=== PATIENT | male | born 1965 | race Caucasian/White ===

== ENCOUNTER 2017-05-17 07:59 | Inpatient (IN) | payer MEDICAID ==
--- NOTE | 2017-05-17 08:41 | ED Physician Chart ---
Chief Complaint/HPI - Patient Information Date Seen:: 05/17/17 Time Seen:: 08:25 Chief Complaint:: lower abdominal pain History of Present Illness:: Patient's had lower abdominal pain for 3 days. He had diarrhea 122 days ago but not since. He had a normal bowel movement this morning. He denies vomiting. Patient cut his left index finger about one week ago. Allergies:: Allergies Allergy/AdvReac Type Severity Reaction Status Date / Time No Known Allergies Allergy Verified 05/17/17 08:13 Vitals:: Vital Signs - 8 hr 05/17/17 08:05 Temp 98.1 F HR 97 RR 16 BP 163/97 O2 Sat % 97 Historian:: Patient Review:: Nurse's Note Reviewed Review of Systems - Review of Systems General/Constitutional: No fever, No chills Skin: No skin lesions Head: No headache Eyes: No loss of vision ENT: No earache Neck: No neck pain Cardio Vascular: No chest pain, No palpitations Pulmonary: No SOB GI: No nausea, No vomiting, Diarrhea, Pain G/U: No dysuria Musculoskeletal: No bone or joint pain, Other (severe episodes of muscle cramping) Psychiatric: No prior psych history, No depression Hematopoietic: No bruising Allergic/Immuno: No urticaria Past Medical History - Past Medical History Past Medical History: HTN Family History: None Social History: Non Smoker, Alcohol, Other (patient drinks 12-24 beers per day) Surgical History: other (right femur as a child after trauma) Psychiatricy History: None Medication: Reviewed Family Medical History - Family Member Mother Hx Family Cancer: Yes Physical Exam - Physical Examination General/Constitutional: Alert, No distress Head: Atraumatic Eyes: Lids, conjuctiva normal, PERRL Skin: Nl inspection, No rash, No skin lesions, No ecchymosis ENMT: External ears, nose nl, TM canals nl, Nasal exam nl, Lips, teeth, gums nl Neck: No nuchal rigidity Respiratory: Nl effort/Exclusion, Clear to Auscultation Cardio Vascular: No murmur, gallop, rubs, NL S1 S2 GI: No organomegaly, No hernia, Normal BS's, No mass/bruits Other GI comments:: Right upper quadrant and lower abdominal tenderness which is maximum in the left lower quadrant : No CVA tenderness Extremities: No tenderness or effusion Other Extremities comments:: Left index finger: There is a 1 cm linear laceration of the dorsal proximal segment with about 2 mm of erythema on both sides of the laceration Neuro/Psych: Alert/oriented Misc: Normal back Labs/Radiology/EKG Results - Lab Results Results: Laboratory Results - last 24 hr 05/17/17 05/17/17 05/17/17 08:48 08:48 09:28 WBC 15.4 H RBC 4.99 Hgb 14.8 Hct 43.7 MCV 87.6 MCH 29.6 MCHC Differential 33.8 RDW 13.6 Plt Count 232 MPV 7.5 Band Neutrophils % 4 Neutrophils (Manual) 77 Lymphocytes 11 L Monocytes 8 Sodium 139 Potassium 4.2 Chloride 107 Carbon Dioxide 28.6 Anion Gap 7.6 BUN 16 Creatinine 0.9 Est GFR ( Amer) > 60.0 Est GFR (Non-Af Amer) > 60.0 BUN/Creatinine Ratio 17.8 Glucose 123 H Whole Bld Lactic Acid 0.73 Calcium 9.0 Magnesium 2.2 Lipase 31 - Radiology Results Results: CT of abdomen and pelvis showed diverticulitis with perforated diverticulum Assessment - Assessment General Assessment: Dr. Galeas wanted a consult to Dr. Potter. I spoke to Dr. Moss also. ED Septic Shock - . Is Septic Shock (SBP<90, OR Lactate>4 mmol\L) present?: No - <6hrs of presentation: Vital Signs: Vital Signs - 8 hr 05/17/17 08:05 Temp 98.1 F HR 97 RR 16 BP 163/97 O2 Sat % 97 Reassessment (Disposition) - Reassessment Reassessment Condition:: Unchanged - Diagnosis Diagnosis:: Diverticulitis; perforated diverticulum; leukocytosis - Patient Disposition Admitted to:: Med/Surg Spoke to:: Sae Galeas Admitting Medical Physician:: Sae Galeas Condition at Disposition:: Stable, Unchanged
[2017-05-17 08:59] LABS: HEMATOCRIT 43.7 % (39.0-49.0); HEMOGLOBIN 14.8 gm/dL (13.2-17.3); MEAN CELL VOLUME 87.6 fl (80-99); MEAN CORPUSCULAR HEMOGLOBIN 29.6 pg (26.0-30.0); MEAN CORPUSCULAR HGB CONC 33.8 pg (28.0-36.0); MEAN PLATELET VOLUME 7.5 fl; PLATELET COUNT 232 Th/cmm (150-400); RED BLOOD COUNT 4.99 Mil/cmm (4.30-5.70); RED CELL DISTRIBUTION WIDTH 13.6 % (11.5-20.0)
[2017-05-17 09:04] LABS: WHITE BLOOD COUNT 15.4 Th/cmm (4.8-10.8)
[2017-05-17 09:13] LABS: ANION GAP 7.6 (7.0-16.0); BUN - UREA NITROGEN 16 mg/dL (7-25); BUN/CREATININE RATIO 17.8; CARBON DIOXIDE 28.6 mEq/L (21.0-31.0); CHLORIDE 107 mEq/L (98-107); CREATININE - SERUM 0.9 mg/dL (0.7-1.3); GLUCOSE 123 mg/dL (70-105); LIPASE 31 U/L (11-82); MAGNESIUM 2.2 mg/dL (1.9-2.7); POTASSIUM SERUM 4.2 mEq/L (3.5-5.1); SODIUM SERUM 139 mEq/L (136-145)
--- NOTE | 2017-05-17 09:40 | Diagnostic Imaging Report ---
CT abdomen and pelvis without intravenous contrast Indication: Diverticulitis Comparison: None, Technique: Axial images were obtained from the lung bases to the bilateral proximal femurs without IV contrast. Coronal reconstructions were made. total DLP: 980, CTDI17.9 FINDINGS: Hypoventilatory atelectatic lung changes are noted. Assessment of the solid organs is limited due to lack of IV contrast. There is fatty infiltration of the liver. No evidence of focal hepatic or splenic lesions. No focal adrenal images. Nonspecific mild bilateral perinephric inflammatory changes are noted. No hydronephrosis. Diverticulosis is seen with bowel wall thickening inflammatory change in diverticulitis of the sigmoid colon with multiple pockets of free air seen extending superiorly into the mesenteric region compatible with perforation. No evidence of an abscess. Trace free fluid is noted. Appendix is unremarkable. Small bilateral fat-containing hernias are noted. Degenerative changes of the spine are noted. IMPRESSION: Findings compatible with perforated diverticulitis in the region of the sigmoid colon with surrounding inflammatory change and pockets of free air seen extending superiorly. No evidence of abscess formation. Clinical correlation and follow-up is recommended. Fatty liver. Critical results were conveyed to the ER on 05/17/2017.
[2017-05-17 09:47] LABS: TOTAL CELLS COUNTED 100
[2017-05-17 09:48] LABS: BAND NEUTROPHILE 4 % (0-10); NEUTROPHILS 77 % (40-80)
[2017-05-17] MEDS ORDERED: Sodium Chloride 0.9% 1,000 ML IV ONE (09:59)
[2017-05-17 10:39] LABS: URINE BILIRUBIN NEGATIVE (NEGATIVE); URINE COLOR H; URINE GLUCOSE (UA) NEGATIVE (NEGATIVE)
[2017-05-17 10:40] LABS: URINE BLOOD SMALL (NEGATIVE); URINE KETONE NEGATIVE (NEGATIVE); URINE PROTEIN 30 mg/dL (NEGATIVE); URINE UROBILINOGEN 0.2 E.U./dL (0.2 - 1.0)
[2017-05-17 10:41] LABS: URINE BACTERIA NONE SEEN /hpf (NONE SEEN); URINE EPITHELIAL CELLS OCCASIONAL /lpf (FEW); URINE RBC 0-2 /hpf (0-5); URINE WBC 0-2 /hpf (0-5)
[2017-05-17] MEDS ORDERED: HYDROmorphone 2 mg/mL 1mL Vial ONE (10:46)
[2017-05-17] MEDS ORDERED: HYDROmorphone 2 mg/mL 1mL Vial IVP STA (11:06)
[2017-05-17] MEDS ORDERED: D5-0.45NS 1,000 ML IV SCH (11:31)
[2017-05-17] MEDS ORDERED: HYDROmorphone 1 mg/mL 1mL Syr IVP PRN (13:16)
[2017-05-17] MEDS: HYDROmorphone 2 mg/mL 1mL Vial IVP PRN ×2 (13:21→21:04)
--- NOTE | 2017-05-17 13:48 | Admit Criteria Form ---
Admit Criteria Forms - Admit Criteria Diagnosis: DIVERTICULITIS, ACUTE Clinical Indications for Admission to Inpatient Care (Place 'X' for any and all applicable criteria): Admission is indicated for ANY ONE of the following (1)(2)(3)(4): [ ]I. Peritoneal signs on physical examination (eg, acute abdominal pain, abdominal tenderness and guarding) [ ]II. Hemodynamic instability [ ]III. Persistent gross bleeding per rectum [ ]IV. Need for inpatient surgical intervention [X]V. Significant abnormality on imaging study including ANY ONE of the following: [ ]a) Abscess [ ]b) Obstruction [ ]c) Fistula [ ]d) Ileus [X]e) Free perforation [ ]. Immunocompromised patient (steroid use, chemotherapy, uremia, AIDS , transplant patient ) with acute symptoms [ ]VII Inpatient admission required rather than observation care (also use Diverticulitis, Acute: Observation Care as appropriate) because of ANY ONE of the following: [ ]a) High fever or infection. requiring inpatient admission as indicated by ANY ONE of the following(5): [ ]1) Appropriate outpatient or observation care antimicrobial treatment unavailable, not effective, not feasible [ ]2) Temperature > 103.1 degrees F (39.5 degrees C) (oral) or < 96.8 degrees F (36 degrees C)(rectal) that does not respond to all emergency treatment measures [ ]3) Temperature> 104.9 degrees F (40.5 degrees C)( oral) [ ]4) Documented bacteremia [ ]b) Severe pain requiring acute inpatient management [ ]c) Severe electrolyte abnormalities requiring inpatient care [ ]d) Ongoing transfusion for blood loss (> 2 units) [ ]e) IV fluid to replace significant ongoing losses (> 3 L/m2 per day) [ ]f) Parenteral nutrition regimen that must be implemented on inpatient basis [ ]g) Other condition, treatment or monitoring requiring inpatient admission Extended stay beyond goal length of stay may be needed for (2) (15) : [ ]a) Unresolved symptoms (19) [ ]b) Complications [ ]c) Diverticular hemorrhage(2) The original [facility] content created by [employer] has been revised. The portions of the content which have been revised are identified through the use of italic text or in bold, and [facility] has neither reviewed nor approved the modified material. All other unmodified content is copyright [facility]. Please see references footnoted in the original [facility] edition 2016
--- NOTE | 2017-05-17 17:39 | History and Physical ---
History of Present Illness - HPI Chief Complaint: Abdominal Pain HPI: 52 yo White Male with lower abdominal pain for 3 days. Vital Signs: Last Vital Signs Temp 98.1 F 05/17/17 11:51 Pulse 95 05/17/17 11:51 Resp 18 05/17/17 15:30 BP 154/98 05/17/17 11:51 Pulse Ox 96 05/17/17 11:51 Past Medical History Cardiovascular: Report: HTN Pulmonary: Report: No Pertinent Hx [employer]: Report: No Pertinent Hx GI: Report: No Pertinent Hx Psych: Report: Addictions Musculoskeletal: Report: No Pertinent Hx Rheumatologic: Report: No pertinent Hx Infectious Disease: Report: No Pertinent Hx Renal/: Report: No Pertinent Hx Endocrine: Report: No Pertinent Hx Dermatology: Report: No Pertinent Hx - Past Surgical History Past Surgical History: Other (Right Femur) Family Medical History - Family Member Mother History Unknown: Yes Hx Family Cancer: Yes Social History Smoke: No Alcohol: Heavy Drugs: None - Medications Home Medications: Home Medication Medication Instructions Recorded Type NK [No Home Meds] 05/17/17 History - Allergies Allergies/Adverse Reactions: Allergies Allergy/AdvReac Type Severity Reaction Status Date / Time No Known Allergies Allergy Verified 05/17/17 08:13 Review of Systems - Review of Systems Constitutional: Denies: No Significant, Fever, Chills, Sweats, Weakness, Malaise , Other Eyes: Denies: No Significant, Pain, Vision Change, Conjunctivae Inflammation, Eyelid Inflammation, Redness, Other ENT: Denies: No Significant, Ear Pain, Ear Discharge, Nose Pain, Nose Discharge , Nose Congestion, Mouth Pain, Mouth Swelling, Throat Pain, Throat Swelling, Other Respiratory: Denies: No Significant, Cough, Dry, Shortness of Breath, Hemoptysis , SOB with Excertion, Pleuritic Pain, Sputum, Wheezing, Other Cardiovascular: Denies: No Significant, Chest Pain, Palpitations, Orthopnea, Paroxysmal Noc. Dyspnea, Edema, Light Headedness, Other Gastrointestinal: Report: Abdominal Pain, Diarrhea Genitourinary: Denies: No Significant, Dysuria, Frequency, Incontinence, Hematuria, Retention, Other Musculoskeletal: Denies: No Significant, Neck Pain, Shoulder Pain, Arm Pain, Back Pain, Hand Pain, Leg Pain, Foot Pain, Other Skin: Denies: No Significant, Rash, Lesions, Hany, Bruising, Other Neurological: Denies: No Significant, Weakness, Numbness, Incoordination, Change in Speech, Confusion, Seizures, Other Physical Exam - Physical Exam HEENT: Report: Ears Nose Throat within normal limits Neck: Report: Within normal limits Cardiovascular Systems: Report: Regular, Rate and Rhythm, no murmurs noted Respiratory: Report: Clear to Auscultation of lung guerrero, Breath Sounds are within normal limits Abdomen: Report: Tender to palpation, Bowel Sounds are within normal limits Back: Report: Inspection of back is within normal limits. Extremities: Report: Non-tender to palpation., Patient had full range of motion , No pedal edema was noted on inspection Skin: Report: Color of skin is within normal limits, Warm, Dry, No Rashes noted of the skin Neuro/Psych: Report: A+Ox3, CN II-XII intact, Mood affect is within normal limits, No sensory deficit - Lab Results All Lab Results last 24 hours: Laboratory Last Values WBC 15.4 Th/cmm (4.8-10.8) H 05/17/17 08:48 RBC 4.99 Mil/cmm (4.30-5.70) 05/17/17 08:48 Hgb 14.8 gm/dL (13.2-17.3) 05/17/17 08:48 Hct 43.7 % (39.0-49.0) 05/17/17 08:48 MCV 87.6 fl (80-99) 05/17/17 08:48 MCH 29.6 pg (26.0-30.0) 05/17/17 08:48 MCHC Differential 33.8 pg (28.0-36.0) 05/17/17 08:48 RDW 13.6 % (11.5-20.0) 05/17/17 08:48 Plt Count 232 Th/cmm (150-400) 05/17/17 08:48 MPV 7.5 fl 05/17/17 08:48 Band Neutrophils % 4 % (0-10) 05/17/17 08:48 Neutrophils (Manual) 77 % (40-80) 05/17/17 08:48 Lymphocytes 11 % (20-50) L 05/17/17 08:48 Monocytes 8 % (2-10) 05/17/17 08:48 Sodium 139 mEq/L (136-145) 05/17/17 08:48 Potassium 4.2 mEq/L (3.5-5.1) 05/17/17 08:48 Chloride 107 mEq/L (98-107) 05/17/17 08:48 Carbon Dioxide 28.6 mEq/L (21.0-31.0) 05/17/17 08:48 Anion Gap 7.6 (7.0-16.0) 05/17/17 08:48 BUN 16 mg/dL (7-25) 05/17/17 08:48 Creatinine 0.9 mg/dL (0.7-1.3) 05/17/17 08:48 Est GFR ( Amer) > 60.0 ml/min (>90) 05/17/17 08:48 Est GFR (Non-Af Amer) > 60.0 ml/min 05/17/17 08:48 BUN/Creatinine Ratio 17.8 05/17/17 08:48 Glucose 123 mg/dL (70-105) H 05/17/17 08:48 Whole Bld Lactic Acid 0.73 mmol/L (0.60-1.99) 05/17/17 09:28 Calcium 9.0 mg/dL (8.6-10.3) 05/17/17 08:48 Magnesium 2.2 mg/dL (1.9-2.7) 05/17/17 08:48 Lipase 31 U/L (11-82) 05/17/17 08:48 Urine Source MIDSTREAM 05/17/17 09:12 Urine Color H 05/17/17 09:12 Urine Clarity HAZY (CLEAR) 05/17/17 09:12 Urine pH 6.0 05/17/17 09:12 Ur Specific [place] 1.025 (1.005-1.030) 05/17/17 09:12 Urine Protein 30 mg/dL (NEGATIVE) H 05/17/17 09:12 Urine Glucose (UA) NEGATIVE mg/dL (NEGATIVE) 05/17/17 09:12 Urine Ketones NEGATIVE mg/dL (NEGATIVE) 05/17/17 09:12 Urine Blood SMALL (NEGATIVE) H 05/17/17 09:12 Urine Nitrate NEGATIVE (NEGATIVE) 05/17/17 09:12 Urine Bilirubin NEGATIVE (NEGATIVE) 05/17/17 09:12 Urine Urobilinogen 0.2 E.U./dL (0.2 - 1.0) 05/17/17 09:12 Ur Leukocyte Esterase NEGATIVE (NEGATIVE) 05/17/17 09:12 Urine RBC 0-2 /hpf (0-5) H 05/17/17 09:12 Urine WBC 0-2 /hpf (0-5) 05/17/17 09:12 Ur Epithelial Cells OCCASIONAL /lpf (FEW) 05/17/17 09:12 Urine Bacteria NONE SEEN /hpf (NONE SEEN) 05/17/17 09:12 HIV 1&2 Antibody Screen NEGATIVE (NEG) 05/17/17 08:48 - Assessment Assessment: * Abdominal Pain * Diarrhea * Diverticulitis * Alcohol Abuse * Suicidal Ideation - Plan Plan: Admit to Med Surg ID Consult GI Consult General Surgery Consult Psychiatry Consult
[2017-05-17] MEDS: metroNIDAZOLE 500mg/NS 100mL 500 MG/100 ML BAG IV SCH (21:05)
[2017-05-18] MEDS: metroNIDAZOLE 500mg/NS 100mL 500 MG/100 ML BAG IV SCH ×3 (05:50→23:37)
[2017-05-18 07:13] LABS: ANION GAP 4.4 (7.0-16.0); BUN - UREA NITROGEN 14 mg/dL (7-25); BUN/CREATININE RATIO 17.5; CALCIUM SERUM 8.7 mg/dL (8.6-10.3); CARBON DIOXIDE 30.6 mEq/L (21.0-31.0); CHLORIDE 106 mEq/L (98-107); CREATININE - SERUM 0.8 mg/dL (0.7-1.3); GLUCOSE 125 mg/dL (70-105); SODIUM SERUM 137 mEq/L (136-145)
[2017-05-18 07:43] LABS: % BASOPHILS 0.3 % (0.0-2.0); % EOSINOPHILS 4.6 % (0.0-5.0); % LYMPHOCYTES 14.5 % (20.0-50.0); % MONOCYTES 5.7 % (2.0-10.0); % NEUTROPHILS 74.9 % (40.0-80.0); HEMATOCRIT 39.4 % (39.0-49.0); MEAN CELL VOLUME 87.4 fl (80-99); MEAN CORPUSCULAR HEMOGLOBIN 28.8 pg (26.0-30.0); MEAN CORPUSCULAR HGB CONC 32.9 pg (28.0-36.0); MEAN PLATELET VOLUME 8.2 fl; NEUTROPHILE ABSOLUTE 8.2 Th/cmm (1.8-8.0); PLATELET COUNT 226 Th/cmm (150-400); RED BLOOD COUNT 4.51 Mil/cmm (4.30-5.70); RED CELL DISTRIBUTION WIDTH 13.5 % (11.5-20.0); WHITE BLOOD COUNT 10.9 Th/cmm (4.8-10.8)
[2017-05-18] MEDS: HYDROmorphone 2 mg/mL 1mL Vial IVP PRN (08:47)
--- NOTE | 2017-05-18 09:46 | Diagnostic Imaging Report ---
KUB History: Perforated diverticulitis Comparison: CT abdomen and pelvis on 05/17/2017 Findings: The bowel gas pattern is nonspecific. No radiographic evidence of gross free abdominal air. The osseous structures are intact. IMPRESSION: Nonspecific bowel gas pattern. Note, patient's free air is not well defined radiographically. Please refer to recent CT exam for complete details.
--- NOTE | 2017-05-18 09:51 | General Progress Note ---
Subjective - Review of Systems Service Date: 05/18/17 Subjective: Patient is awake and alert. Still complains of abdominal pain. Patient is on IV abx. Patient is still NPO. Objective - Results Result Diagrams: 05/18/17 05:59 05/18/17 05:59 Recent Labs: Laboratory Last Values WBC 10.9 Th/cmm (4.8-10.8) H D 05/18/17 05:59 RBC 4.51 Mil/cmm (4.30-5.70) 05/18/17 05:59 Hgb 13.0 gm/dL (13.2-17.3) L 05/18/17 05:59 Hct 39.4 % (39.0-49.0) 05/18/17 05:59 MCV 87.4 fl (80-99) 05/18/17 05:59 MCH 28.8 pg (26.0-30.0) 05/18/17 05:59 MCHC Differential 32.9 pg (28.0-36.0) 05/18/17 05:59 RDW 13.5 % (11.5-20.0) 05/18/17 05:59 Plt Count 226 Th/cmm (150-400) 05/18/17 05:59 MPV 8.2 fl 05/18/17 05:59 Neutrophils % 74.9 % (40.0-80.0) 05/18/17 05:59 Band Neutrophils % 4 % (0-10) 05/17/17 08:48 Lymphocytes % 14.5 % (20.0-50.0) L 05/18/17 05:59 Monocytes % 5.7 % (2.0-10.0) 05/18/17 05:59 Eosinophils % 4.6 % (0.0-5.0) 05/18/17 05:59 Basophils % 0.3 % (0.0-2.0) 05/18/17 05:59 Neutrophils (Manual) 77 % (40-80) 05/17/17 08:48 Lymphocytes 11 % (20-50) L 05/17/17 08:48 Monocytes 8 % (2-10) 05/17/17 08:48 ESR 35 mm/hr (0-20) H 05/18/17 05:59 Sodium 137 mEq/L (136-145) 05/18/17 05:59 Potassium 4.0 mEq/L (3.5-5.1) 05/18/17 05:59 Chloride 106 mEq/L (98-107) 05/18/17 05:59 Carbon Dioxide 30.6 mEq/L (21.0-31.0) 05/18/17 05:59 Anion Gap 4.4 (7.0-16.0) L 05/18/17 05:59 BUN 14 mg/dL (7-25) 05/18/17 05:59 Creatinine 0.8 mg/dL (0.7-1.3) 05/18/17 05:59 Est GFR ( Amer) > 60.0 ml/min (>90) 05/18/17 05:59 Est GFR (Non-Af Amer) > 60.0 ml/min 05/18/17 05:59 BUN/Creatinine Ratio 17.5 05/18/17 05:59 Glucose 125 mg/dL (70-105) H 05/18/17 05:59 Whole Bld Lactic Acid 0.73 mmol/L (0.60-1.99) 05/17/17 09:28 Calcium 8.7 mg/dL (8.6-10.3) 05/18/17 05:59 Magnesium 2.2 mg/dL (1.9-2.7) 05/17/17 08:48 C-Reactive Protein 17.0 mg/dL (0.0-0.9) H 05/18/17 05:59 Lipase 31 U/L (11-82) 05/17/17 08:48 Urine Source MIDSTREAM 05/17/17 09:12 Urine Color H 05/17/17 09:12 Urine Clarity HAZY (CLEAR) 05/17/17 09:12 Urine pH 6.0 05/17/17 09:12 Ur Specific [place] 1.025 (1.005-1.030) 05/17/17 09:12 Urine Protein 30 mg/dL (NEGATIVE) H 05/17/17 09:12 Urine Glucose (UA) NEGATIVE mg/dL (NEGATIVE) 05/17/17 09:12 Urine Ketones NEGATIVE mg/dL (NEGATIVE) 05/17/17 09:12 Urine Blood SMALL (NEGATIVE) H 05/17/17 09:12 Urine Nitrate NEGATIVE (NEGATIVE) 05/17/17 09:12 Urine Bilirubin NEGATIVE (NEGATIVE) 05/17/17 09:12 Urine Urobilinogen 0.2 E.U./dL (0.2 - 1.0) 05/17/17 09:12 Ur Leukocyte Esterase NEGATIVE (NEGATIVE) 05/17/17 09:12 Urine RBC 0-2 /hpf (0-5) H 05/17/17 09:12 Urine WBC 0-2 /hpf (0-5) 05/17/17 09:12 Ur Epithelial Cells OCCASIONAL /lpf (FEW) 05/17/17 09:12 Urine Bacteria NONE SEEN /hpf (NONE SEEN) 05/17/17 09:12 HIV 1&2 Antibody Screen NEGATIVE (NEG) 05/17/17 08:48 - Physical Exam Vitals and I&O: Vital Signs Temp 97.6 F 05/18/17 08:00 Pulse 77 05/18/17 08:00 Resp 20 05/18/17 08:00 BP 149/96 05/18/17 08:00 Pulse Ox 96 05/18/17 08:00 Intake & Output 05/17/17 05/18/17 05/18/17 18:59 06:59 18:59 Intake Total 1100 100 Balance 1100 100 Weight (lbs) 170.097 kg 168.283 kg Intake: Intake, IV Amount 1100 100 Piperacillin Sodium/ 100 Tazobact 4.5 gm In Sodium Chloride 0.9% 100 ml @ 100 mls/hr IV Q6HR [facility] Rx #:[id number] metroNIDAZOLE 500mg/NS 100 100mL 500 mg In 100 ml @ 100 mls/hr IV Q8HR [facility] Rx #:[id number] Oral 0 Other: # Voids 2 4 # Bowel Movements 0 Active Medications: Current Medications Clonidine HCl (Catapres) 0.1 mg PO Q6HR PRN PRN Reason: systolic bp >150 Stop: 07/16/17 13:35 Hydromorphone HCl (Dilaudid) 2 mg IVP Q4HR PRN PRN Reason: Severe Pain Stop: 07/16/17 13:15 Last Admin: 05/18/17 08:47 Dose: 2 mg Hydromorphone HCl (Dilaudid) 1 mg IVP Q4HR PRN PRN Reason: moderate pain Stop: 07/16/17 13:15 Dextrose/Sodium Chloride (D5-0.45ns) 1,000 mls @ 100 mls/hr IV .Q10H [facility] Stop: 07/16/17 11:30 Last Admin: 05/18/17 00:37 Dose: 100 mls/hr Piperacillin Sod/Tazobactam (Sod 4.5 gm/ Sodium Chloride) 100 mls @ 100 mls/hr IV Q6HR [facility] Stop: 07/16/17 17:59 Last Infusion: 05/17/17 18:10 Dose: Infused Metronidazole (Flagyl) 500 mg in 100 mls @ 100 mls/hr IV Q8HR [facility] Stop: 07/16/17 20:59 Last Admin: 05/18/17 05:50 Dose: 100 mls/hr Lorazepam (Ativan) 1 mg IVP Q4HR PRN; Protocol PRN Reason: Alcohol Withdrawal Stop: 07/16/17 17:41 Miscellaneous (Zosyn Iv Per Pharmacy) 1 ea MC PRN PRN PRN Reason: PROTOCOL Stop: 07/16/17 13:34 General: Alert, Oriented x3, Cooperative, No acute distress HEENT: Atraumatic, PERRLA, EOMI, Mucous membr. moist/pink Neck: Supple, JVD, Thyromegaly, +2 carotid pulse wo bruit, LAD Cardiovascular: Regular rate, Normal S1, Normal S2 Lungs: Clear to auscultation, Normal air movement Abdomen: Bowel sounds, Soft, Tender Extremities: no Clubbing, no Cyanosis, no Edema, no Pulses, no Tender, no Other Neurological: Normal gait, Normal speech, Strength at 5/5 X4 ext, Normal tone, Sensation intact, Cranial nerves 3-12 NL, Reflexes 2+ Skin: no Rash, no Breakdown, no Significant lesion, no Other Psych/Mental Status: Mental status NL, Mood NL - Procedures Procedures: Procedures Procedure Code Date CLOSURE SKIN & SUBCUTANEOUS NEC 86.59 12/08/10 DPT ADMINISTRATION 99.39 12/08/10 IMMUNIZATION ADMIN 34208 12/08/10 RPR S/N/AX/GEN/TRNK 2.5CM/< 13254 12/08/10 TDAP VACCINE 7 YRS/> IM [id number] 12/08/10 Assessment/Plan - Assessment Assessment: * Abdominal Pain * Diarrhea * Diverticulitis * Alcohol Abuse * Suicidal Ideation - Plan Plan: Continue IV abx Awaiting culture results Further per consults Obtain labs in am
--- NOTE | 2017-05-18 11:23 | Consultation ---
Consult Note - Consult Note Service Date: 05/17/17 Referring Physician: Sae Galeas Consult Note: PHYSICIAN Consultation Note: Date of Admission: 05/17/17 Purpose of Consultation:peritonitis Chief Complaint:pain lower abdomen History of Present Illness: Patient KWABENA HIGGINS was admitted to [facility] with DIVERTICULITIS W/ PERFORATE DIVERTICULUM. Past Medical History:htn Diagnoses ELEVATED WHITE BLOOD CELL COUNT, UNSPECIFIED (05/17/17) ALCOHOL ABUSE, UNCOMPLICATED (05/17/17) ESSENTIAL (PRIMARY) HYPERTENSION (05/17/17) DVTRCLI OF INTEST, PART UNSP, W PERF AND ABSCESS W/O BLEED (05/17/17) UNSPECIFIED ABDOMINAL PAIN (05/17/17) SUICIDAL IDEATIONS (05/17/17) LACERATION W/O FB OF L IDX FNGR W/O DAMAGE TO NAIL, INIT (05/17/17) Allergies Allergy/AdvReac Type Severity Reaction Status Date / Time No Known Allergies Allergy Verified 05/17/17 08:13 Vital Signs Temp 97.6 F 05/18/17 08:00 Pulse 77 05/18/17 08:00 Resp 20 05/18/17 08:00 BP 149/96 05/18/17 08:00 Pulse Ox 96 05/18/17 08:00 Intake & Output 05/17/17 05/18/17 05/18/17 18:59 06:59 18:59 Intake Total 1100 100 Balance 1100 100 Weight (lbs) 170.097 kg 168.283 kg Intake: Intake, IV Amount 1100 100 Piperacillin Sodium/ 100 Tazobact 4.5 gm In Sodium Chloride 0.9% 100 ml @ 100 mls/hr IV Q6HR [facility] Rx #:[id number] metroNIDAZOLE 500mg/NS 100 100mL 500 mg In 100 ml @ 100 mls/hr IV Q8HR [facility] Rx #:[id number] Oral 0 Other: # Voids 2 4 # Bowel Movements 0 Laboratory Results - last 24 hr 05/18/17 05/18/17 05/18/17 05:59 05:59 05:59 WBC 10.9 H D RBC 4.51 Hgb 13.0 L Hct 39.4 MCV 87.4 MCH 28.8 MCHC Differential 32.9 RDW 13.5 Plt Count 226 MPV 8.2 Neutrophils % 74.9 Lymphocytes % 14.5 L Monocytes % 5.7 Eosinophils % 4.6 Basophils % 0.3 ESR 35 H Sodium 137 Potassium 4.0 Chloride 106 Carbon Dioxide 30.6 Anion Gap 4.4 L BUN 14 Creatinine 0.8 Est GFR ( Amer) > 60.0 Est GFR (Non-Af Amer) > 60.0 BUN/Creatinine Ratio 17.5 Glucose 125 H Calcium 8.7 C-Reactive Protein 17.0 H Home Medication Medication Instructions Recorded Type NK [No Home Meds] 05/17/17 History Current Medications Generic Name Dose Route Start Last Admin Trade Name Freq PRN Reason Stop Dose Admin Clonidine HCl 0.1 mg 05/17/17 13:36 Catapres PO 07/16/17 13:35 Q6HR PRN systolic bp >150 Hydromorphone HCl 2 mg 05/17/17 13:16 05/18/17 08:47 Dilaudid IVP 07/16/17 13:15 2 mg Q4HR PRN Administration Severe Pain Hydromorphone HCl 1 mg 05/17/17 13:16 Dilaudid IVP 07/16/17 13:15 Q4HR PRN moderate pain Dextrose/Sodium Chloride 1,000 mls @ 100 mls/hr 05/17/17 11:31 05/18/17 00:37 D5-0.45ns IV 07/16/17 11:30 100 mls/hr .Q10H [facility] Administration Piperacillin Sod/Tazobactam 100 mls @ 100 mls/hr 05/17/17 18:00 05/17/17 18: 10 Sod 4.5 gm/ Sodium Chloride IV 07/16/17 17:59 Infused Q6HR [facility] Infusion Metronidazole 500 mg in 100 mls @ 100 mls/hr 05/17/17 21:00 05/18/17 05:50 Flagyl IV 07/16/17 20:59 100 mls/hr Q8HR [facility] Administration Lorazepam 1 mg 05/17/17 17:42 Ativan IVP 07/16/17 17:41 Q4HR PRN Alcohol Withdrawal Protocol Miscellaneous 1 ea 05/17/17 13:35 Zosyn Iv Per Pharmacy 07/16/17 13:34 PRN PRN PROTOCOL Review of Systems: A 12 point ROS was reviewed with the pertinent positive and negatives noted in the HPI. Social History Smoking Status Unknown if ever smoked Family Medical History Family Medical History Start: 05/17/17 11: 26 Freq: ONCE Status: Active Document 05/17/17 15:30 SHAYANGURWINDER (Rec: 05/17/17 15:54 JOSE [id number] ) Family Medical History Mother History Unknown Yes Physical Exam: General: Alert and Oriented x3, No Acute Distress HEENT: EOMI Bilaterally, PERRLA Bilaterally, Head is normocephalic, atraumatic on inspection. Cardio: +S1/S2 Auscultated, RRR, no murmurs/rubs/gallops noted Respiratory: Clear to Auscultate Bilaterally Abdominal: Soft, Nondistended, tender to palpation x 4 quadrants Genital/Urinary: cellulitis suprapubic Extremities: No Edema noted in the lower extremities Neurological: Cranial Nerves II-XII intact bilaterally, Gait Steady, No Focal Deficits noted. Assessment/Plan:cellulitis perf diverticulitis Jacky Garcia Nilesh N. 05/18/[id number]
[2017-05-18 13:11] LABS: HEP B CORE AB TOTAL Negative (Negative); HEP B SURFACE AB QL Non Reactive; HEP C ANTIBODY <0.1 s/co ratio (0.0-0.9)
--- NOTE | 2017-05-18 15:30 | Consultation ---
Consult Note - Consult Note Service Date: 05/18/17 Referring Physician: Sae Galeas Consult Note: PHYSICIAN Consultation Note: Date of Admission: 05/17/17 Purpose of Consultation: Severe abdominal pain and perforated diverticulitis. Chief Complaint: Severe abdominal pain History of Present Illness: Patient KWABENA HIGGINS was admitted to [facility] Unit I with DIVERTICULITIS W/ PERFORATE DIVERTICULUM. Patient started getting sick with severe abdominal pain felt dehydrated direct lots of liquids but then had worsening of the pain so he came to the emergency room here and was found to have a perforated diverticulitis patient was admitted now started to feel better. Past Medical History: Obesity and hypertension. Diagnoses ELEVATED WHITE BLOOD CELL COUNT, UNSPECIFIED (05/17/17) ALCOHOL ABUSE, UNCOMPLICATED (05/17/17) ESSENTIAL (PRIMARY) HYPERTENSION (05/17/17) DVTRCLI OF INTEST, PART UNSP, W PERF AND ABSCESS W/O BLEED (05/17/17) UNSPECIFIED ABDOMINAL PAIN (05/17/17) SUICIDAL IDEATIONS (05/17/17) LACERATION W/O FB OF L IDX FNGR W/O DAMAGE TO NAIL, INIT (05/17/17) Allergies Allergy/AdvReac Type Severity Reaction Status Date / Time No Known Allergies Allergy Verified 05/17/17 08:13 Vital Signs Temp 96.8 F 05/18/17 12:00 Pulse 77 05/18/17 12:00 Resp 18 05/18/17 12:00 BP 129/88 05/18/17 12:00 Pulse Ox 96 05/18/17 12:00 Intake & Output 05/17/17 05/18/17 05/18/17 18:59 06:59 18:59 Intake Total 1100 200 Balance 1100 200 Weight (lbs) 170.097 kg 168.283 kg Intake: Intake, IV Amount 1100 200 Piperacillin Sodium/ 100 Tazobact 4.5 gm In Sodium Chloride 0.9% 100 ml @ 100 mls/hr IV Q6HR [facility] Rx #:[id number] metroNIDAZOLE 500mg/NS 200 100mL 500 mg In 100 ml @ 100 mls/hr IV Q8HR [facility] Rx #:[id number] Oral 0 Other: # Voids 2 4 # Bowel Movements 0 Laboratory Results - last 24 hr 05/18/17 05/18/17 05/18/17 05:59 05:59 05:59 WBC 10.9 H D RBC 4.51 Hgb 13.0 L Hct 39.4 MCV 87.4 MCH 28.8 MCHC Differential 32.9 RDW 13.5 Plt Count 226 MPV 8.2 Neutrophils % 74.9 Lymphocytes % 14.5 L Monocytes % 5.7 Eosinophils % 4.6 Basophils % 0.3 ESR 35 H Sodium 137 Potassium 4.0 Chloride 106 Carbon Dioxide 30.6 Anion Gap 4.4 L BUN 14 Creatinine 0.8 Est GFR ( Amer) > 60.0 Est GFR (Non-Af Amer) > 60.0 BUN/Creatinine Ratio 17.5 Glucose 125 H Calcium 8.7 C-Reactive Protein 17.0 H Home Medication Medication Instructions Recorded Type NK [No Home Meds] 05/17/17 History Current Medications Generic Name Dose Route Start Last Admin Trade Name Freq PRN Reason Stop Dose Admin Clonidine HCl 0.1 mg 05/17/17 13:36 Catapres PO 07/16/17 13:35 Q6HR PRN systolic bp >150 Hydromorphone HCl 2 mg 05/17/17 13:16 05/18/17 08:47 Dilaudid IVP 07/16/17 13:15 2 mg Q4HR PRN Administration Severe Pain Hydromorphone HCl 1 mg 05/17/17 13:16 Dilaudid IVP 07/16/17 13:15 Q4HR PRN moderate pain Dextrose/Sodium Chloride 1,000 mls @ 100 mls/hr 05/17/17 11:31 05/18/17 00:37 D5-0.45ns IV 07/16/17 11:30 100 mls/hr .Q10H [facility] Administration Piperacillin Sod/Tazobactam 100 mls @ 100 mls/hr 05/17/17 18:00 05/17/17 18: 10 Sod 4.5 gm/ Sodium Chloride IV 07/16/17 17:59 Infused Q6HR [facility] Infusion Metronidazole 500 mg in 100 mls @ 100 mls/hr 05/17/17 21:00 05/18/17 12:52 Flagyl IV 07/16/17 20:59 100 mls/hr Q8HR [facility] Administration Lorazepam 1 mg 05/17/17 17:42 Ativan IVP 07/16/17 17:41 Q4HR PRN Alcohol Withdrawal Protocol Miscellaneous 1 05/17/17 13:35 Zosyn Iv Per Pharmacy 07/16/17 13:34 PRN PRN PROTOCOL Miscellaneous 1 05/18/17 15:18 Ppn Per Pharmacy 07/17/17 15:17 PRN PRN PROTOCOL Review of Systems: A 12 point ROS was reviewed with the pertinent positive and negatives noted in the HPI. Social History Smoking Status nonsmoker Patient drinks heavily between 6-12 packs every day. Patient has uses marijuana but nothing in the vein or in the notes Family Medical History Family Medical History Brother was colon cancer and another brother was Hodgkin lymphoma and his mother had melanoma Start: 05/17/17 11:26 Freq: ONCE Status: Active Document 05/17/17 15:30 JOSE (Rec: 05/17/17 15:54 JOSE [email or web address] ) Family Medical History Physical Exam: General: Alert and Oriented x3, No Acute Distress HEENT: EOMI Bilaterally, PERRLA Bilaterally, Head is normocephalic, atraumatic on inspection. Cardio: +S1/S2 Auscultated, RRR, no murmurs/rubs/gallops noted Respiratory: Clear to Auscultate Bilaterally Abdominal: Soft, Nondistended, Nontender to palpation x 4 quadrants abdomen is also obese Genital/Urinary: Extremities: No Edema noted in the lower extremities Neurological: Cranial Nerves II-XII intact bilaterally, Gait Steady, No Focal Deficits noted. Assessment/Plan: Acute diverticulitis with microperforation. Clinically it seems that the patient is pain-free abdomen soft nontender white count is normal. Will keep the patient nothing by mouth we'll continue his IV antibiotics was started on PPN and he should have another CAT scan in few days depending on his clinical response Family history of colon cancer. Patient hasn't had a colonoscopy for 9 or 10 years because of lack of insurance. He was advised that he needs ones and he stated that he would have one once his affect is over. Signed, Candice Peace [phone]
[2017-05-18] MEDS ORDERED: Sodium Chloride 0.9% 500 ML IV SCH (15:45)
[2017-05-18] MEDS: Morphine Sulfate 4 mg/mL 1mL Syr IVP PRN (17:05)
[2017-05-18] MEDS: Amino Acids 3% / Electrolytes 1,000 ML IV SCH (17:49)
[2017-05-19] MEDS: metroNIDAZOLE 500mg/NS 100mL 500 MG/100 ML BAG IV SCH ×3 (05:34→20:35)
[2017-05-19 06:09] LABS: % BASOPHILS 0.7 % (0.0-2.0); % EOSINOPHILS 4.6 % (0.0-5.0); % LYMPHOCYTES 12.6 % (20.0-50.0); % MONOCYTES 3.3 % (2.0-10.0); % NEUTROPHILS 78.8 % (40.0-80.0); HEMATOCRIT 38.8 % (39.0-49.0); MEAN CELL VOLUME 86.9 fl (80-99); MEAN CORPUSCULAR HGB CONC 33.4 pg (28.0-36.0); MEAN PLATELET VOLUME 7.7 fl; NEUTROPHILE ABSOLUTE 8.4 Th/cmm (1.8-8.0); PLATELET COUNT 250 Th/cmm (150-400); RED BLOOD COUNT 4.47 Mil/cmm (4.30-5.70); RED CELL DISTRIBUTION WIDTH 13.2 % (11.5-20.0); WHITE BLOOD COUNT 10.6 Th/cmm (4.8-10.8)
[2017-05-19 06:24] LABS: ANION GAP 6.6 (7.0-16.0); BUN - UREA NITROGEN 11 mg/dL (7-25); BUN/CREATININE RATIO 13.8; CALCIUM SERUM 8.6 mg/dL (8.6-10.3); CHLORIDE 105 mEq/L (98-107); CREATININE - SERUM 0.8 mg/dL (0.7-1.3); GLUCOSE 104 mg/dL (70-105); MAGNESIUM 2.2 mg/dL (1.9-2.7); PHOSPHOROUS 2.4 mg/dL (2.5-5.0); POTASSIUM SERUM 3.6 mEq/L (3.5-5.1); SODIUM SERUM 135 mEq/L (136-145); TRIGLYCERIDES 91 mg/dL (<150)
[2017-05-19] MEDS: Morphine Sulfate 4 mg/mL 1mL Syr IVP PRN (10:40)
[2017-05-19] MEDS: Amino Acids 3% / Electrolytes 1,000 ML IV SCH (13:42)
--- NOTE | 2017-05-19 15:59 | General Progress Note ---
Subjective - Review of Systems Service Date: 05/19/17 Subjective: Patient is awake and alert. Denies any abdominal pain. Patient is on IV abx. Patient is still NPO. Recomendation from GI to repeat CT of abdomen. Objective - Results Result Diagrams: 05/19/17 05:49 05/19/17 05:49 Recent Labs: Laboratory Last Values WBC 10.6 Th/cmm (4.8-10.8) 05/19/17 05:49 RBC 4.47 Mil/cmm (4.30-5.70) 05/19/17 05:49 Hgb 13.0 gm/dL (13.2-17.3) L 05/19/17 05:49 Hct 38.8 % (39.0-49.0) L 05/19/17 05:49 MCV 86.9 fl (80-99) 05/19/17 05:49 MCH 29.0 pg (26.0-30.0) 05/19/17 05:49 MCHC Differential 33.4 pg (28.0-36.0) 05/19/17 05:49 RDW 13.2 % (11.5-20.0) 05/19/17 05:49 Plt Count 250 Th/cmm (150-400) 05/19/17 05:49 MPV 7.7 fl 05/19/17 05:49 Neutrophils % 78.8 % (40.0-80.0) 05/19/17 05:49 Band Neutrophils % 4 % (0-10) 05/17/17 08:48 Lymphocytes % 12.6 % (20.0-50.0) L 05/19/17 05:49 Monocytes % 3.3 % (2.0-10.0) 05/19/17 05:49 Eosinophils % 4.6 % (0.0-5.0) 05/19/17 05:49 Basophils % 0.7 % (0.0-2.0) 05/19/17 05:49 Neutrophils (Manual) 77 % (40-80) 05/17/17 08:48 Lymphocytes 11 % (20-50) L 05/17/17 08:48 Monocytes 8 % (2-10) 05/17/17 08:48 ESR 47 mm/hr (0-20) H 05/19/17 05:49 Sodium 135 mEq/L (136-145) L 05/19/17 05:49 Potassium 3.6 mEq/L (3.5-5.1) 05/19/17 05:49 Chloride 105 mEq/L (98-107) 05/19/17 05:49 Carbon Dioxide 27.0 mEq/L (21.0-31.0) 05/19/17 05:49 Anion Gap 6.6 (7.0-16.0) L 05/19/17 05:49 BUN 11 mg/dL (7-25) 05/19/17 05:49 Creatinine 0.8 mg/dL (0.7-1.3) 05/19/17 05:49 Est GFR ( Amer) > 60.0 ml/min (>90) 05/19/17 05:49 Est GFR (Non-Af Amer) > 60.0 ml/min 05/19/17 05:49 BUN/Creatinine Ratio 13.8 05/19/17 05:49 Glucose 104 mg/dL (70-105) 05/19/17 05:49 Whole Bld Lactic Acid 0.73 mmol/L (0.60-1.99) 05/17/17 09:28 Calcium 8.6 mg/dL (8.6-10.3) 05/19/17 05:49 Phosphorus 2.4 mg/dL (2.5-5.0) L 05/19/17 05:49 Magnesium 2.2 mg/dL (1.9-2.7) 05/19/17 05:49 C-Reactive Protein 10.1 mg/dL (0.0-0.9) H 05/19/17 05:49 Triglycerides 91 mg/dL (<150) 05/19/17 05:49 Lipase 31 U/L (11-82) 05/17/17 08:48 Urine Source MIDSTREAM 05/17/17 09:12 Urine Color H 05/17/17 09:12 Urine Clarity HAZY (CLEAR) 05/17/17 09:12 Urine pH 6.0 05/17/17 09:12 Ur Specific [place] 1.025 (1.005-1.030) 05/17/17 09:12 Urine Protein 30 mg/dL (NEGATIVE) H 05/17/17 09:12 Urine Glucose (UA) NEGATIVE mg/dL (NEGATIVE) 05/17/17 09:12 Urine Ketones NEGATIVE mg/dL (NEGATIVE) 05/17/17 09:12 Urine Blood SMALL (NEGATIVE) H 05/17/17 09:12 Urine Nitrate NEGATIVE (NEGATIVE) 05/17/17 09:12 Urine Bilirubin NEGATIVE (NEGATIVE) 05/17/17 09:12 Urine Urobilinogen 0.2 E.U./dL (0.2 - 1.0) 05/17/17 09:12 Ur Leukocyte Esterase NEGATIVE (NEGATIVE) 05/17/17 09:12 Urine RBC 0-2 /hpf (0-5) H 05/17/17 09:12 Urine WBC 0-2 /hpf (0-5) 05/17/17 09:12 Ur Epithelial Cells OCCASIONAL /lpf (FEW) 05/17/17 09:12 Urine Bacteria NONE SEEN /hpf (NONE SEEN) 05/17/17 09:12 Hep Bs Antigen Negative (Negative) 05/17/17 08:48 Hep Bs Antibody Non Reactive 05/17/17 08:48 Hep B Core Total Ab Negative (Negative) 05/17/17 08:48 Hepatitis C Antibody <0.1 s/co ratio (0.0-0.9) 05/17/17 08:48 HIV 1&2 Antibody Screen NEGATIVE (NEG) 05/17/17 08:48 - Physical Exam Vitals and I&O: Vital Signs Temp 98.1 F 05/19/17 11:32 Pulse 81 05/19/17 11:32 Resp 20 05/19/17 11:32 BP 171/98 05/19/17 11:32 Pulse Ox 96 05/19/17 11:32 Intake & Output 05/18/17 05/19/17 05/19/17 18:59 06:59 18:59 Intake Total 1860 100 Output Total 400 Balance 1460 100 Weight (lbs) 166.015 kg Intake: Intake, IV Amount 1300 100 Amino Acids 3% / 1000 Electrolytes 1,000 ml @ 80 mls/hr IV .[id number] [facility] Rx#:[id number] metroNIDAZOLE 500mg/NS 300 100 100mL 500 mg In 100 ml @ 100 mls/hr IV Q8HR [facility] Rx #:[id number] Oral 0 TPN/PPN 560 Output: Urine 400 Active Medications: Current Medications Clonidine HCl (Catapres) 0.1 mg PO Q6HR PRN PRN Reason: systolic bp >150 Stop: 07/16/17 13:35 Escitalopram Oxalate (Lexapro) 10 mg PO DAILY [facility] PRN Reason: Protocol Stop: 07/18/17 08:59 Piperacillin Sod/Tazobactam (Sod 4.5 gm/ Sodium Chloride) 100 mls @ 100 mls/hr IV Q6HR [facility] Stop: 07/16/17 17:59 Last Admin: 05/19/17 11:32 Dose: 100 mls/hr Metronidazole (Flagyl) 500 mg in 100 mls @ 100 mls/hr IV Q8HR [facility] Stop: 07/16/17 20:59 Last Infusion: 05/19/17 13:42 Dose: Infused Amino Acids/Electrolytes (Procalamine) 1,000 mls @ 80 mls/hr IV .[id number] [facility] Stop: 07/17/17 15:44 Last Admin: 05/19/17 13:42 Dose: 80 mls/hr Sodium Chloride (Nacl 0.9%) 500 mls @ 20 mls/hr IV .Q24H [facility] Stop: 07/17/17 15:44 Insulin Aspart (Novolog Insulin Sliding Scale) 0 units SUBQ ACHS [facility] PRN Reason: Protocol Stop: 07/18/17 16:29 Lorazepam (Ativan) 1 mg IVP Q4HR PRN; Protocol PRN Reason: Alcohol Withdrawal Stop: 07/16/17 17:41 Mineral Oil (Mineral Oil 30 Ml) 30 ml PO DAILY [facility] Stop: 07/18/17 11:29 Last Admin: 05/19/17 13:46 Dose: 30 ml Miscellaneous (Zosyn Iv Per Pharmacy) 1 ea PRN PRN PRN Reason: PROTOCOL Stop: 07/16/17 13:34 Miscellaneous (Ppn Per Pharmacy) 1 ea PRN PRN PRN Reason: PROTOCOL Stop: 07/17/17 15:17 Morphine Sulfate (Morphine) 2 mg IVP Q4HR PRN PRN Reason: Pain (Severe) Stop: 07/17/17 16:52 Last Admin: 05/19/17 10:40 Dose: 2 mg General: Alert, Oriented x3, Cooperative, No acute distress HEENT: Atraumatic, PERRLA, EOMI, Mucous membr. moist/pink Neck: Supple, JVD, Thyromegaly, +2 carotid pulse wo bruit, LAD Cardiovascular: Regular rate, Normal S1, Normal S2 Lungs: Clear to auscultation, Normal air movement Abdomen: Bowel sounds, Soft, no Tender Extremities: no Clubbing, no Cyanosis, no Edema, no Pulses, no Tender, no Other Neurological: Normal gait, Normal speech, Strength at 5/5 X4 ext, Normal tone, Sensation intact, Cranial nerves 3-12 NL, Reflexes 2+ Skin: no Rash, no Breakdown, no Significant lesion, no Other Psych/Mental Status: Mental status NL, Mood NL - Procedures Procedures: Procedures Procedure Code Date CLOSURE SKIN & SUBCUTANEOUS NEC 86.59 12/08/10 DPT ADMINISTRATION 99.39 12/08/10 IMMUNIZATION ADMIN 25206 12/08/10 RPR S/N/AX/GEN/TRNK 2.5CM/< 38408 12/08/10 TDAP VACCINE 7 YRS/> [place] [id number] 12/08/10 Assessment/Plan - Assessment Assessment: * Abdominal Pain * Diarrhea * Diverticulitis * Alcohol Abuse * Suicidal Ideation - Plan Plan: Continue IV abx Awaiting culture results Further per consults Obtain labs in am Obtain CT of Abdomen in am Nutritional Asmnt/Malnutr-PDOC - Dietary Evaluation Malnutrition Findings (Please click <Entered> for more info): Nutritional Asmnt/Malnutrition Start: 05/18/17 14: 47 Text: Status: Complete Freq: Document 05/18/17 14:47 GSUN (Rec: 05/18/17 14:54 GSUN [email or web address]) Nutritional Asmnt/Malnutrition Patient General Information Nutritional Screening High Risk Screening Diagnosis Abdominal pain, diarrhea, diverticulitis, alcohol abuse Pertinent Medical Hx/Surgical Hx HTN, addictions, alcohol 12-24 beers per day Subjective Information 52 year old male. 05/17 CT: perforated diverticulitis, fatter liver. Pt was pleasant and receptive of nutrition education. Pt reported hx of chronic diarrhea, most severe 12x on 05/15/17, no diarrhea since. Pt stated appetite usually good. Teeth intact. Pt report UBW 375, CBW 365.5lb via bedscale, pt denied recent weight loss. Current Diet Order/ Nutrition Support NPO Pertinent Medications D50.45ns, Dilaudid, Flagyl Pertinent Labs Reviewed. Nutritional Hx/Data Height 1.91 m Height (Calculated Centimeters) 190.5 Current Weight (lbs) 165.788 kg Weight (Calculated Kilograms) 165.8 Weight (Calculated Grams) 414837.0 Usual body Weight (lbs) 275 [place] Body Weight 196 Recent Weight Change No Weight Status Morbidly Obese GI Symptoms Skin Integrity/Comment: Nolan Maurer. Skin intact. Estimated Nutritional Goals BEE in Kcals: Adj wt of IBW Calories/Kcals/Kg AdjBW 238.4lb/108.4kg Kcals Calculated 2168-2710kcal (20-25kcal/kg) Protein: Adj wt of IBW Protein Calculated 87g (0.8g/kg) Fluid: ml 2168-2710ml (1ml/kcal) Nutritional Problem 1. Problem Problem Altered GI function related to Etiology possibly diverticulitis, fatty liver aeb Signs/Symptoms: abdominal pain, diarrhea, CT scan 3. Problem Problem Malnutrition related to Etiology morbid obesity, energy imbalance aeb Signs/Symptoms: BMI 46 2. Problem Problem Undesireable food choices related to Etiology alcohol aeb Signs/Symptoms: alcohol abuse Intervention/Recommendation Comments 1. when medically feasible to resume diet, recommend soft/ bland low fiber until diverticulitis improves. 2. Provided nutrition education on diverticulitis vs diverticulosis, high vs low fiber. Pt expressed understanding. 3. Provided nutrition education on alcohol vs malnutrition. Pt expressed understanding. Expected Outcomes/Goals Expected Outcomes/Goals 1. PO intake to resume and meet at least 75% of estimated nutritional needs.
[2017-05-19] MEDS: INSULIN ASPART SLIDING SCALE 100 UNITS/ML UNIT SUBQ SCH ×2 (19:40→20:19)
== END 2017-05-20 02:30 | disposition left against medical advice (07) | DRG 244 ==
LOC: ER 07:59 → MSI 11:00
PROVIDERS: ADMIT Preventive Medicine Preventive Medicine/Occupational Environmental Medicine; ATTEND Preventive Medicine Preventive Medicine/Occupational Environmental Medicine
DX: K57.20 Diverticulitis of large intestine with perforation and abscess without bleeding (principal); R45.851 Suicidal ideations; I10 Essential (primary) hypertension; F10.10 Alcohol abuse, uncomplicated; R19.7 Diarrhea, unspecified; Z53.21 Procedure and treatment not carried out due to patient leaving prior to being seen by health care provider; E86.0 Dehydration; E66.9 Obesity, unspecified; Z68.41 Body mass index [BMI] 40.0-44.9, adult; Z80.9 Family history of malignant neoplasm, unspecified
CPT/HCPCS: 36415-UA; 74000-TC; 80048-TC; 81001-TC; 82948-90; 83605; 83690-TC; 83735-TC; 84100-TC; 84134-90; 84478-TC; 85007-TC; 85025-TC; 85027-TC; 85652-TC; 86141-TC; 86703-TC; 86704-90; 86706-90; 86803-90; 87070-90; 87075-90; 87205-90; 87340-90; 90799; J1170; J1815; J2543; J7030; Z7610

== ENCOUNTER 2017-08-22 16:03 | Inpatient (IN) | payer MEDICAID ==
[2017-08-22] MEDS ORDERED: Sodium Chloride 0.9% 1,000 ML IV ONE (16:24)
--- NOTE | 2017-08-22 16:24 | ED Physician Chart ---
ED Chief Complaint/HPI - Patient Information Date Seen:: 08/22/17 Time Seen:: 16:15 Chief Complaint:: Abdominal Pain History of Present Illness:: onset x 2 days of intermittent, crampy, lower abdominal pain with constipation; no A/N/V/D, fever, chills, urinary s/s, C/P, SOB, cough, neck pain, or H/As Allergies:: Allergies Allergy/AdvReac Type Severity Reaction Status Date / Time No Known Allergies Allergy Verified 05/17/17 08:13 Vitals:: Vital Signs - 8 hr 08/22/17 16:13 Temp 98.2 F HR 96 BP 127/79 O2 Sat % 97 Historian:: Patient Review:: Nurse's Note Reviewed ED Review of Systems - Review of Systems General/Constitutional: No fever, No chills, No weight loss, No weakness, No diaphoresis, No edema, No loss of appetite Skin: No skin lesions, No rash, No bruising Head: No headache, No light-headedness Eyes: No loss of vision, No pain, No diplopia ENT: No earache, No nasal drainage, No sore throat, No tinnitus Neck: No neck pain, No swelling, No thyromegaly, No stiffness, No mass noted Cardio Vascular: No chest pain, No palpitations, No PND, No orthopnea, No edema Pulmonary: No SOB, No cough, No sputum, No wheezing GI: Nausea, Vomiting, Diarrhea, Pain, No pain, No melena, No hematochezia, No constipation, No hematemesis G/U: No dysuria, No frequency, No hematuria Musculoskeletal: No bone or joint pain, No back pain, No muscle pain Endocrine: No polyuria, No polydipsia Psychiatric: No prior psych history, No depression, No anxiety, No suicidal ideation Hematopoietic: No bruising, No lymphadenopathy Allergic/Immuno: No urticaria, No angioedema Neurological: No syncope, No focal symptoms, No weakness, No paresthesia, No headache, No seizure, No dizziness, No confusion, No vertigo ED Past Medical History - Past Medical History Obtainable: Yes Past Medical History: Other (Diverticulitis) Family History: Diabetes Melitus, HTN Social History: Non Smoker, Alcohol, No Drug Use, Single, Employed Surgical History: None Psychiatricy History: None Medication: Reviewed Family Medical History - Family Member Mother History Unknown: Yes Hx Family Cancer: No Hx Family Coronary Artery Disease: No Hx Family Hypertension: No Hx Family Stroke: No Hx Family Seizures: No Hx Family AIDS: No Hx Family Psychiatric Problems: No ED Physical Exam - Physical Examination General/Constitutional: Awake, Well-developed, well-nourished, Alert, No distress, GCS 15, Non-toxic appearing, Ambulatory Head: Atraumatic Eyes: Lids, conjuctiva normal, PERRL, EOMI Skin: Nl inspection, No rash, No skin lesions, No ecchymosis, Well hydrated, No lymphadenopathy ENMT: External ears, nose nl, Nasal exam nl, Lips, teeth, gums nl Neck: Nontender, Full ROM w/o pain, No JVD, No nuchal rigidity, No bruit, No mass, No stridor Respiratory: Nl effort/Exclusion, Clear to Auscultation, No Wheeze/Rhonchi/Rales Cardio Vascular: RRR, No murmur, gallop, rubs, NL S1 S2 GI: No tenderness/rebounding/guarding, No organomegaly, No hernia, Normal BS's, Nondistended, No mass/bruits, No McBurney tenderness : No CVA tenderness Extremities: No tenderness or effusion, Full ROM, normal strength in all extremities, No edema, Normal digits & nails Neuro/Psych: Alert/oriented, DTR's symmetric, Normal sensory exam, Normal motor strength, Judgement/insight normal, Mood normal, Normal gait, No focal deficits Misc: Normal back, No paraspinal tenderness ED Labs/Radiology/EKG Results - Lab Results Comments:: K+: 3.3; WBC: 13,5 - Radiology Results Comments:: + Ileus; + Acute Diverticulitis Sigmoid Colon - EKG Interpretations Rate & Rhythm: NSR Comments:: ISABELLE; Old ASMI; non-specific st-t changes ED Septic Shock - . Is Septic Shock (SBP<90, OR Lactate>4 mmol\L) present?: No - <6hrs of presentation: Vital Signs: Vital Signs - 8 hr 08/22/17 16:13 Temp 98.2 F HR 96 BP 127/79 O2 Sat % 97 ED Reassessment (Disposition) - Reassessment Reassessment Condition:: Improved - Diagnosis Diagnosis:: Dx; Abdominal Pain; Constipation; Leukocytosis; Hypokalemia; Ileus; Acute Diverticulitis - Aftercare/Follow up Instructions Aftercare/Follow-Up Instructions:: Counseled pt regarding lab results/diagnosis & need follow up, Counseled pt & family regarding lab results/diagnosis & need follow up - Patient Disposition Discharge/Transfer:: Acute Care w/in this hosp Accepting Physician:: Dr. Zelaya Time Called:: 2129 Time Responded:: 21:45 Admitted to:: Telemetry Spoke to:: Dr. Zelaya Admitting Medical Physician:: Dr. Zelaya Condition at Disposition:: Stable, Improved
[2017-08-22 16:52] LABS: % LYMPHOCYTES 11.6 % (20.0-50.0); % MONOCYTES 3.3 % (2.0-10.0); % NEUTROPHILS 84.1 % (40.0-80.0); MEAN CELL VOLUME 90.6 fl (80-99); MEAN CORPUSCULAR HEMOGLOBIN 31.1 pg (26.0-30.0); MEAN CORPUSCULAR HGB CONC 34.4 pg (28.0-36.0); MEAN PLATELET VOLUME 7.3 fl; NEUTROPHILE ABSOLUTE 11.5 Th/cmm (1.8-8.0); RED BLOOD COUNT 5.07 Mil/cmm (4.30-5.70); RED CELL DISTRIBUTION WIDTH 14.6 % (11.5-20.0)
[2017-08-22 17:15] LABS: ALB/GLOB RATIO 1.3 (1.0-1.8); ALKALINE PHOSPHATASE 57 U/L (34-104); ANION GAP 11.9 (7.0-16.0); BILIRUBIN,TOTAL 0.9 mg/dL (0.3-1.0); BUN - UREA NITROGEN 11 mg/dL (7-25); BUN/CREATININE RATIO 12.2; CALCIUM SERUM 9.4 mg/dL (8.6-10.3); CARBON DIOXIDE 23.4 mEq/L (21.0-31.0); CHLORIDE 105 mEq/L (98-107); CHOLESTEROL 186 mg/dL (<200); CREATININE - SERUM 0.9 mg/dL (0.7-1.3); GLUCOSE 99 mg/dL (70-105); POTASSIUM SERUM 3.3 mEq/L (3.5-5.1); SGOT 15 U/L (13-39); SGPT/ALT 23 U/L (7-52); SODIUM SERUM 137 mEq/L (136-145); TRIGLYCERIDES 87 mg/dL (<150)
[2017-08-22 17:16] LABS: AMYLASE SERUM 50 U/L (29-103); LIPASE 51 U/L (11-82)
[2017-08-22 17:18] LABS: INR 0.96 (0.5-1.4)
[2017-08-22 17:33] LABS: HEMOGLOBIN 15.8 gm/dL (12-16); PLATELET COUNT 330 Th/cmm (150-400); WHITE BLOOD COUNT 13.7 Th/cmm (4.8-10.8)
[2017-08-22] MEDS ORDERED: IOHEXOL 300MG/ML 100 ML VIAL ONE (19:35)
[2017-08-22] MEDS ORDERED: cefTRIAXone 1 GM in Sodium Chloride 0.9% 50 ML IV ONE (23:00)
[2017-08-22] MEDS ORDERED: [UNRECOGNIZED DRUG - OTHER] IV ONE (23:49)
[2017-08-22] MEDS ORDERED: D5 IV ONE (23:49)
[2017-08-22] MEDS ORDERED: KCL IV ONE (23:49)
[2017-08-22] MEDS ORDERED: methylPREDNISolone SS 40 mg Vial ONE (23:51)
[2017-08-22] MEDS: Morphine Sulfate 2 mg/mL 1mL Syr IVP PRN (23:53)
[2017-08-22] MEDS: D5-0.45NS 1,000 ML IV SCH (23:56)
[2017-08-23] MEDS: metroNIDAZOLE 500mg/NS 100mL 500 MG/100 ML BAG IV SCH ×4 (00:01→20:41)
[2017-08-23] MEDS: Potassium Chloride 20 mEq ER Tab PO ONE ×2 (00:43→00:46)
[2017-08-23 02:26] VITALS: BP 141/83
[2017-08-23] MEDS: Ciprofloxacin 200mg Premix PB 200 MG/100 ML BAG IV SCH ×3 (03:00→23:30)
[2017-08-23 06:37] LABS: HEMATOCRIT 44.5 % (41.0-60); HEMOGLOBIN 15.5 gm/dL (12-16); MEAN CORPUSCULAR HEMOGLOBIN 31.4 pg (26.0-30.0); MEAN CORPUSCULAR HGB CONC 34.8 pg (28.0-36.0); MEAN PLATELET VOLUME 7.4 fl; NEUTROPHILE ABSOLUTE 11.7 Th/cmm (1.8-8.0); PLATELET COUNT 321 Th/cmm (150-400); RED BLOOD COUNT 4.94 Mil/cmm (4.30-5.70); RED CELL DISTRIBUTION WIDTH 14.2 % (11.5-20.0)
[2017-08-23 07:06] LABS: WHITE BLOOD COUNT 12.4 Th/cmm (4.8-10.8)
[2017-08-23 07:07] LABS: ALB/GLOB RATIO 1.2 (1.0-1.8); ALKALINE PHOSPHATASE 54 U/L (34-104); ANION GAP 10.5 (7.0-16.0); BAND NEUTROPHILE 3 % (0-10); BILIRUBIN,TOTAL 0.5 mg/dL (0.3-1.0); BUN - UREA NITROGEN 11 mg/dL (7-25); BUN/CREATININE RATIO 13.8; CALCIUM SERUM 8.9 mg/dL (8.6-10.3); CARBON DIOXIDE 24.8 mEq/L (21.0-31.0); CHLORIDE 107 mEq/L (98-107); CREATININE - SERUM 0.8 mg/dL (0.7-1.3); GLUCOSE 138 mg/dL (70-105); MAGNESIUM 2.1 mg/dL (1.9-2.7); NEUTROPHILS 89 % (40-80); POTASSIUM SERUM 4.3 mEq/L (3.5-5.1); SGOT 15 U/L (13-39); SGPT/ALT 22 U/L (7-52); SODIUM SERUM 138 mEq/L (136-145); TOTAL CELLS COUNTED 100
--- NOTE | 2017-08-23 08:20 | Diagnostic Imaging Report ---
Exam: CT examination abdomen pelvis. HISTORY: Abdominal pain. Total DLP equals 829 CTDI equals 16.7 Findings: Multiple contiguous thin section of the abdomen pelvis obtained from lower thorax to pubic symphysis without the administration of oral contrast material. Intravenous contrast material was utilized. The study was correlated with prior examination of the 05/17/2017. The study demonstrates normal aeration of lung parenchyma the bases. The liver and spleen are intact. The adrenal glands are normal. The gallbladder is distended. The pancreas is intact. The kidneys concentrate and excrete contrast material normal fashion. There is evidence for large amount of soft tissue density and edema over the distal sigmoid colon with diverticulosis and diverticulitis with microperforation. There is no evidence for hellen abscess formation. Urinary bladder is intact. Bony structures demonstrate no evidence for lytic or blastic lesions. IMPRESSION: Findings compatible with perforated diverticulitis the region of sigmoid colon with surrounding inflammatory changes with microperforation. No evidence for abscess formation.
--- NOTE | 2017-08-23 08:22 | Diagnostic Imaging Report ---
Portable chest x-ray Time: 1633 HISTORY: Chest pain Findings: Allowing for portable technique the heart size is normal. No focal pulmonary parenchymal processes. No hilar or mediastinal abnormalities. Small densities in the lower aspect of the chest bilaterally most likely represent nipple shadows, if clinically indicated follow-up examination with nipple markers recommended. Impression: No acute abnormalities.
[2017-08-23] MEDS ORDERED: Probiotic Screen MC PRN (10:15)
[2017-08-23] MEDS: Morphine Sulfate 2 mg/mL 1mL Syr IVP PRN ×3 (10:20→20:06)
--- NOTE | 2017-08-23 16:28 | History & Physical ---
ADMIT DATE: 08/23/2017 CHIEF COMPLAINT: Abdominal pain and diarrhea. HISTORY OF PRESENT ILLNESS: A 52-year-old gentleman who was admitted to this facility back 05/17/2017 with similar symptoms. At that time, he was diagnosed with divticulitis with microperforation and was treated with IV antibiotics and apparently did well. He was discharged on p.o. antibiotics for about 10 days with no recurrence of symptoms until about 2 days ago when he started experiencing similar pain and multiple BMs mostly watery. He reports no bright red blood per rectum or melena. The symptoms are the same as on his last admission. He states that he has not had any followup with his primary care doctor for this issue given that he had no changes in his bowel and he also denies any fever or chills. Pertinent findings include an abdominal and pelvic CT scan showing compatible with perforated diverticulitis in the region of the sigmoid colon with surrounding inflammatory changes with micro perforation. He apparently had the same diagnosis on his last admission. The patient has been admitted to the medical/surgical floor for further management and care. PAST MEDICAL HISTORY: As noted above. FAMILY HISTORY: His brother at age 50 secondary to colon CA. SOCIAL HISTORY: No tobacco, ETOH--drinks occasional beer. Apparently, he has cut down on the beer drinking since last admission. PAST SURGERIES: He had right femur surgery as a child secondary to trauma. ALLERGIES: NKDA. OUTPATIENT MEDICATIONS: None. REVIEW OF SYSTEMS: CONSTITUTIONAL: No fever or chills. CARDIAC: No chest pain or palpitations. PULMONARY: No cough or sputum production. GASTROINTESTINAL: Please refer to HPI. GENITOURINARY: No bladder habit changes. NEUROLOGIC: No change in vision. No headaches, no syncopal. PHYSICAL EXAMINATION: VITAL SIGNS: Temperature 97.3, has been afebrile, pulse 73, respirations 17, BP 119/72, satting 96% on room air. GENERAL: Well nourished, well-developed, not in acute distress. HEAD AND NECK: Normocephalic, atraumatic. CARDIOVASCULAR: Regular rate and rhythm without any murmurs. LUNGS: Clear to auscultation bilaterally. ABDOMEN: Soft, supple, nontender, nondistended, normoactive bowel sounds. EXTREMITIES: No edema in lower extremities. LABORATORY DATA: On admission, white count 13.7, H and H 15/46, platelet count of 330. INR 0.96, potassium 3.3. Otherwise, chem 20 was within normal limits. Albumin 7.2. Lipase 51. DIAGNOSTICS: Please refer to HPI. IMPRESSION: 1. Recurrent acute diverticulitis with sigmoid microperforation. 2. History of diverticulitis. 3. Leukocytosis. PLAN: The patient has been admitted to the medical/surgical floor for further management and care. He has been placed on IV fluids, currently n.p.o. and he is receiving IV Cipro and Flagyl as well as Solu-Medrol 60 mg IV push every 8 hours. A GI eval will be asked for further management and care. JOB# [id number] ZORAIDA
--- NOTE | 2017-08-23 22:32 | Consultation ---
DATE OF CONSULTATION: 08/23/2017 REQUESTING PHYSICIAN: Aye Zelaya M.D. REASON FOR CONSULTATION: Abdominal pain. HISTORY OF PRESENT ILLNESS: This is a 52-year-old male with history of diverticulitis diagnosed in May 2016, treated with antibiotics, who did well until 2 days ago when he had recurrent left lower quadrant abdominal pain. He denied rectal bleeding. He denied fevers or chills. CT here suggested perforated diverticulitis in the region of the sigmoid colon with surrounding inflammatory change consistent with microperforation. Last colonoscopy was about 10 years ago, and reportedly negative. PAST MEDICAL HISTORY: As above. SOCIAL HISTORY: Occasional alcohol. No tobacco. No drugs. PAST SURGICAL HISTORY: Right femur surgery for trauma. FAMILY HISTORY: Brother had colon cancer in his 50s. ALLERGIES: None. MEDICATIONS: Cipro, Flagyl, Culturelle, Solu-Medrol, probiotics, morphine, and Zofran. REVIEW OF SYSTEMS: Negative. PHYSICAL EXAMINATION: VITAL SIGNS: Temperature of 98.4, blood pressure is 110/85, pulse of 75, respirations 17, and O2 sat is 96% on room air. GENERAL: The patient is well-developed, well-nourished male in no acute distress. HEENT: Sclerae nonicteric. Oropharynx is clear. CARDIOVASCULAR: Regular rate and rhythm. LUNGS: Clear to auscultation bilaterally. ABDOMEN: Soft. Mild left lower quadrant tenderness to palpation. EXTREMITIES: No clubbing, cyanosis, or edema. RECTAL: Deferred. LABORATORY DATA AND IMAGING: WBC initially of 13.7, down to 12.4, hemoglobin 15.5, platelet count is 321,000. INR is normal. Creatinine is normal. Liver enzymes are normal. Amylase and lipase normal. CT of the abdomen and pelvis done yesterday without contrast shows findings compatible with perforated diverticulitis in the region of sigmoid colon with surrounding inflammatory change with microperforation. No evidence of abscess formation. IMPRESSION: 1. Recurrent sigmoid diverticulitis. 2. Leukocytosis. 3. Family history of colon cancer. RECOMMENDATIONS: 1. IV antibiotics. 2. N.p.o. status. 3. Surgical evaluation for consideration of sigmoidectomy. 4. Consider elective outpatient colonoscopy in 4-6 weeks' time once diverticulitis has healed to ensure above changes and to rule out concomitant colon cancer or polyps. Thank you Dr. Aye Zelaya for involving us in the care of your patient. If you have any further questions, please call us. JOB# [id number]
[2017-08-24] MEDS: D5-0.45NS 1,000 ML IV SCH ×3 (02:13→21:18)
[2017-08-24] MEDS: Morphine Sulfate 2 mg/mL 1mL Syr IVP PRN ×2 (02:27→14:36)
[2017-08-24] MEDS: metroNIDAZOLE 500mg/NS 100mL 500 MG/100 ML BAG IV SCH ×3 (04:43→21:18)
[2017-08-24 06:09] LABS: HEMATOCRIT 45.5 % (41.0-60); HEMOGLOBIN 15.5 gm/dL (12-16); MEAN CELL VOLUME 90.5 fl (80-99); MEAN CORPUSCULAR HEMOGLOBIN 30.8 pg (26.0-30.0); MEAN PLATELET VOLUME 7.7 fl; RED BLOOD COUNT 5.03 Mil/cmm (4.30-5.70); RED CELL DISTRIBUTION WIDTH 14.3 % (11.5-20.0)
[2017-08-24 06:20] LABS: PLATELET COUNT 391 Th/cmm (150-400); WHITE BLOOD COUNT 15.6 Th/cmm (4.8-10.8)
[2017-08-24 06:35] LABS: ALB/GLOB RATIO 1.2 (1.0-1.8); ALKALINE PHOSPHATASE 53 U/L (34-104); ANION GAP 9.9 (7.0-16.0); BILIRUBIN,TOTAL 0.3 mg/dL (0.3-1.0); BUN - UREA NITROGEN 17 mg/dL (7-25); BUN/CREATININE RATIO 24.3; CALCIUM SERUM 9.2 mg/dL (8.6-10.3); CARBON DIOXIDE 25.3 mEq/L (21.0-31.0); CHLORIDE 108 mEq/L (98-107); CREATININE - SERUM 0.7 mg/dL (0.7-1.3); GLUCOSE 137 mg/dL (70-105); MAGNESIUM 2.2 mg/dL (1.9-2.7); POTASSIUM SERUM 4.2 mEq/L (3.5-5.1); SGOT 12 U/L (13-39); SGPT/ALT 19 U/L (7-52); SODIUM SERUM 139 mEq/L (136-145)
[2017-08-24 06:47] LABS: BAND NEUTROPHILE 1 % (0-10); NEUTROPHILS 92 % (40-80); TOTAL CELLS COUNTED 100
[2017-08-24] MEDS: Lactobacillus Rhamnosus 10 Billion CFU Capsule PO SCH (09:42)
[2017-08-24] MEDS: methylPREDNISolone SS 40 mg Vial IVP SCH ×3 (11:12→21:18)
[2017-08-24] MEDS: Ciprofloxacin 200mg Premix PB 200 MG/100 ML BAG IV SCH (12:06)
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
[2017-08-25] MEDS: Ciprofloxacin 200mg Premix PB 200 MG/100 ML BAG IV SCH (00:37)
[2017-08-25] MEDS: metroNIDAZOLE 500mg/NS 100mL 500 MG/100 ML BAG IV SCH (05:10)
[2017-08-25] MEDS: methylPREDNISolone SS 40 mg Vial IVP SCH (05:18)
[2017-08-25 06:24] LABS: HEMATOCRIT 44.2 % (41.0-60); HEMOGLOBIN 14.9 gm/dL (12-16); MEAN CELL VOLUME 91.6 fl (80-99); MEAN CORPUSCULAR HEMOGLOBIN 30.9 pg (26.0-30.0); MEAN CORPUSCULAR HGB CONC 33.7 pg (28.0-36.0); MEAN PLATELET VOLUME 7.8 fl; PLATELET COUNT 373 Th/cmm (150-400); RED BLOOD COUNT 4.82 Mil/cmm (4.30-5.70); RED CELL DISTRIBUTION WIDTH 14.3 % (11.5-20.0)
[2017-08-25 06:35] LABS: WHITE BLOOD COUNT 14.6 Th/cmm (4.8-10.8)
[2017-08-25 06:40] LABS: TOTAL CELLS COUNTED 100
[2017-08-25 06:41] LABS: BAND NEUTROPHILE 2 % (0-10); NEUTROPHILS 85 % (40-80)
[2017-08-25] MEDS ORDERED: Influenza Vaccine 0.5 mL Syr IM ONE (09:00)
[2017-08-25] MEDS: Lactobacillus Rhamnosus 10 Billion CFU Capsule PO SCH (09:46)
--- NOTE | 2017-08-29 03:04 | Discharge Summary ---
DATE OF DISCHARGE: 08/25/2017 ADMITTING DIAGNOSES: 1. Recurrent abdominal pain and diarrhea. 2. Recurrent acute diverticulitis with sigmoid microperforation. 3. Leukocytosis. 4. Recent history of diverticulitis with perforation. SECONDARY DIAGNOSES: Please refer to the above. DISCHARGE DIAGNOSES: 1. Recurrent abdominal pain and diarrhea. 2. Recurrent acute diverticulitis with sigmoid microperforation. 3. Leukocytosis, improved. 4. Recent history of diverticulitis with perforation. CONSULTANTS: Dr. Montaño, General Surgery, and Dr. Latham, GI. MAJOR PROCEDURES: There was an abdominal and pelvic CT done on 08/22/2017 showing findings compatible with perforated diverticulitis on the region of the sigmoid colon with surrounding inflammatory changes with microperforation and no evidence of abscess formation. BRIEF HOSPITAL COURSE: This is a 52-year-old male, otherwise healthy, admitted to this facility on 05/17/2017 with abdominal pain and bloody diarrhea. At that time, he was diagnosed with diverticulitis with microperforation and was sent home on p.o. antibiotics for a few days. He did well for a while until about 2 days prior to admission when he started experiencing similar abdominal pain and multiple bouts of diarrhea, although this time, they were nonbloody. He denied any fever or chills, but given intensity of the pain , he decided to come into the ER where his white count was noted to be 13.[address] scan showed the above-mentioned findings. The patient was admitted to medical surgical floor, was placed on IV Cipro, IV Flagyl, and Solu-Medrol. A GI evaluation was asked for further management and care and it was suggested that General Surgery be called given the microperforation. Given the patient's improvement of his condition, i.e.,white blood cell count and decreased pain with diarrhea, it was decided that no further interventions will be needed in this case. By 08/23/2017, he reported improvement of his symptoms; however, his white count was noted to go up on 08/24/2017 at 15.6, most likely secondary to steroids given that he had high temperatures. On 08/25/2017, the white count had improved to 14.6, again being asymptomatic. DISCHARGE MEDICATIONS: Flagyl 500 mg q.i.d. x 30 days, Cipro 250 b.i.d. x 30 days, and a prednisone taper. CONDITION ON DISCHARGE: Stable. DISPOSITION: The patient was discharged home to self-care. [facility]# [id number]
== END 2017-08-25 12:50 | disposition home or self-care (01) | DRG 244 ==
LOC: ER 16:03 → TELE 22:20 → MSI 08-23 10:02
PROVIDERS: ADMIT Internal Medicine; ATTEND Internal Medicine
DX: K57.20 Diverticulitis of large intestine with perforation and abscess without bleeding (principal); K56.7 Ileus, unspecified; E87.6 Hypokalemia; K59.00 Constipation, unspecified; E66.9 Obesity, unspecified; Z83.3 Family history of diabetes mellitus; Z82.49 Family history of ischemic heart disease and other diseases of the circulatory system; Z68.39 Body mass index [BMI] 39.0-39.9, adult; Z80.0 Family history of malignant neoplasm of digestive organs; Z72.89 Other problems related to lifestyle
CPT/HCPCS: 36415-UA; 71010-TC; 80053-TC; 80061-TC; 82150-TC; 82550-TC; 83605; 83690-TC; 83735-TC; 83880-TC; 84484-TC; 85007-TC; 85025-TC; 85027-TC; 85610-TC; 90784; 90799; 93005; 94760; J0696; J0744; J2270; J2920; J2930; Q9967